=== PATIENT | female | born 1960 | race Caucasian/White ===

== ENCOUNTER → 2017-11-10 09:37 | Outpatient (CLI) | payer MEDICARE, MEDICAID, SELFPAY ==
[2017-11-10 12:04] LABS: Absolute Lymphocyte Count 2.77 X10^3/ul (0.83-4.51); Absolute Neutrophil Count 6.3 X10^3/uL (2.0-7.7); Basophil# 0.05 X10^3/uL; Basophil% 0.5 % (0-1); Eosinophil# 0.37 X10^3/uL; Eosinophils% 3.6 % (0-5); Hematocrit 37.9 % (37-47); Lymphocyte # 2.77 X10^3/ul (4.0); Lymphocyte % 27.1 % (19-41); Mean Corp Hgb Conc 31.7 g/gl (32-36); Mean Corpuscular Hgb 28.1 pg (27.0-32.0); Mean Corpuscular Volume 88.8 fL (81-99); Mean Platelet Vol. 9.3 fl (6.2-12.0); Monocyte# 0.74 X10^3/uL; Monocyte% 7.2 % (0-10); Neutrophil # 6.27 X10^3/uL (2.7-7.7); Neutrophil % 61.5 % (47-70); Platelet Count 371 K/mm3 (150-450); RBC Distribution Width CV 14.3 % (11.6-14.6); RBC Distribution Width SD 46.5 fl (35.1-43.9); Red Blood Count 4.27 M/mm3 (4.2-5.4); White Blood Count 10.2 K/mm3 (4.4-11.0)
[2017-11-10 12:06] LABS: POSITIVE COUNT NO; POSITIVE DIFFERENTIAL NO; POSITIVE MORPHOLOGY NO
[2017-11-10 12:23] LABS: Anion Gap 8 (5-15); BUN 10 mg/dL (7-18); BUN/Creat Ratio 31.7 RATIO (10-20); Calcium,Total 8.6 mg/dL (8.5-10.1); Chloride 103 mmol/L (98-107); Cholesterol 162 mg/dL (200); Creatinine, Serum 0.32 mg/dL (0.55-1.02); EST Glomerular Filtration Rate 230 mL/min (>60); Est Glom Filt Rate - Afr Amer 278 mL/min (>60); Glucose 55 mg/dL (74-106); High Density Lipoprotein 37 mg/dL; Potassium 4.4 mmol/L (3.5-5.1); Sodium Level 140 mmol/L (136-145); Triglycerides 211 mg/dL; Very Low Density Lipoprotein 42 mg/dL (5-40)
[2017-11-10 12:29] LABS: Hemoglobin A1c 6.7 % (4.2-6.3)
== END ==
PROVIDERS: Family Provider Family Medicine; PCP Family Medicine; Visit Provider Family Medicine
DX: E11.9 Type 2 diabetes mellitus without complications (principal); E78.00 Pure hypercholesterolemia, unspecified
CPT/HCPCS: 36415; 80048; 80061; 83036; 85025

== ENCOUNTER 2018-01-05 10:55 | Outpatient (RCR) | payer MEDICARE, MEDICAID, SELFPAY ==
--- NOTE | 2018-01-05 12:01 | HP.PTEVAL_ITS ---
Patient's Visit Information GIOVANNI LAWRENCE is a 57 year old F referred to Physical Therapy by Howard Alvarez with a diagnosis of CP. Date of Evaluation: 01/05/18 Physical Therapist: Liam Connor DPT, OC - Visit Plan Frequency: No further visits now. Plan: Wc rep present adn will get me paperwork to fill out to get the process rolling. Educated him and drug safety assistant that if she needs mobility training once she gets her new chair than we would love to see her again. D/C at this time and will take care of paperwork as it comes in. - Subjective Subjective: Presents with insurance verification representative and insurance verification representative from her home. I need a new chair as this one is broken down. Referred here by the [employer] company and doctor. Had major electric down time with it. Sleep in a bed and transfers via ceiling lift to where she spends her day. No pain. Sleeps well with CPAP. Works at [email or web address] at [employer]. 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 I like to go to the mall. Someone else mobilizes electric WC for her. Used to be able to move WC herself but not any more. Someone else always moves WC for her. Postiion of WC is not good for her as it is off to the right. Wheres depends briefs. ASometimes takes shower or bath with track system. No numbness in UE or LE. No dizzyness. Reliant on others to feed her. Cannot change channel on TV. - Objective 60 L c/s rot adn 30 R Holds headtilted L. wrists ulnar devaited and stiff, Unable to actively move UE or LE with the excetion of some small lateral and forward movements of R hand grossly which should be able to control WC if we can get the joystick to her hand. Both hands are contracted closed L >R and carpal -MC joints show very little ability to open actively or passivley., can bend elbows full flexion but only straighten to about 90 degrees flexion and no further passivley. No ative scapular pr shoulder motions. Unable to move trunk actively. No pelvic mobiliity acitvely but I can correct passively minimally. Hips have flexion contracture stuck at 90 degrees felxion and L is adducted to 20 but can get her to neutral frontal plane passivley with effort. Only about 10 degrees of passive rotation at hips, Knees can get no straighter than 90 degrees flexion due to her tone and bend to about 105. Ankles show good DF passivley and to neutral 90 degree DF/PF but no passive movement into PF. No active or passive inv/ev available. No active movements in LE at all. No eris lift to transfer her but report is patient cannot sit without support and my testing validates denny in the chair. Otherwise she seems to be oriented to person and place. She is pleasant and looking forward to a better feeling WC which is appropriate for this patient to hel p maintain her passive alignment and hopefull get her moving in open spaces with the joystick. Alignment will be completely passive with chest harness and head support appropriate and likely need head strap. She will need molded support for posture, ribs, pelvis and tiltable and cushion for pressure control. She will need abd wedge to maintain pelvic and hip position and straps at feet with foot support. These will need easily removed for eris transfers. Joystick will need to get to R hand in the middle of her body as she cannot ext rotate her UE which brings her R hand to midline of body (both hands). Unable to ambulate or stand or transfer herself, completely reliant on others for her mobility and positioning in her current chair. \L hip adducted in but can get to bneutral passivley, sits on outside of L hip because of this causing L pelvic tilt and corrective R bend of lumbar/thoracic spine. Head is held in 20 degree L SB and prefers L rotation can hold head in neutral unsupported for short periods of time but relies on head support. Sensation to gross light touch OK to gross testing in LE. - Goals Goal 1:: Get appropriate information to get patient appropriate WC. Goal Time Frame: 1 Week - Rehabilitation Potential Physical Therapy Diagnosis: CP Rehabilitation Potential: Fair - Anticipated Interventions Patient/Client Instruction: Educate patient on: Condition, Plan of Care Thank you for the opportunity to evaluate your patient. For Medicare and Medicare HMO plans, please review the plan of care and approve it. It will need to be FAXED BACK to us at [phone] for Medicare purposes. Please let me know if there are questions or concerns regarding this plan of care. Physician Signature: Date:
== END 2018-01-05 12:50 | disposition home or self-care (01) ==
LOC: PT 10:55
PROVIDERS: Family Provider Family Medicine; PCP Family Medicine; Visit Provider Family Medicine
DX: G80.0 Spastic quadriplegic cerebral palsy (principal)
CPT/HCPCS: 97163

== ENCOUNTER → 2018-06-09 09:17 | Outpatient (CLI) | payer MEDICARE, MEDICAID, SELFPAY ==
[2018-06-09 11:18] LABS: Anion Gap 11 (5-15); BUN 9 mg/dL (7-18); Calcium,Total 8.3 mg/dL (8.5-10.1); Chloride 102 mmol/L (98-107); Creatinine, Serum 0.39 mg/dL (0.55-1.02); EST Glomerular Filtration Rate 179 mL/min (>60); Est Glom Filt Rate - Afr Amer 216 mL/min (>60); Glucose 209 mg/dL (74-106); Potassium 3.9 mmol/L (3.5-5.1); Sodium Level 136 mmol/L (136-145)
[2018-06-09 12:02] LABS: Hemoglobin A1c 6.3 % (4.2-6.3)
--- OUTSIDE RECORDS SUMMARY | 2018-08-13 16:20 | XMS RPT_ITS ---
:1960 Author Organization OHIP Care Team Providers Name Role Phone BEBETO COBB ELIZABETH F. Attending Unavailable PHYSICIAN, NONE Primary Care Unavailable Howard Alvarez Attending Unavailable Howard Alvarez Referring Unavailable Howard Alvarez Primary Care Unavailable Howard Alvarez Attending Unavailable Howard Alvarez Primary Care Unavailable Howard Alvarez Attending Unavailable Howard Alvarez Referring Unavailable Howard Alvarez Primary Care Unavailable PROBLEMS PROBLEMS No Problem Records FoundPROCEDURES PROCEDURES No Procedure Records FoundRESULTS RESULTS BASIC METABOLIC Collected: 06/09/2018 Status: F Source: GIANCARLO PROFILE (BMP) 9:22 AM [facility] REPOSITORY TYPE CODE TESTS RESULT OUT OF RANGE REFERENCE UNITS LAB L501.0100 74-106 mg/dL High GLU 209 Result Comment: Glucose result greater than or equal to 200 mg/dL suggests DIABETES MELLITUS per A.D.A. criteria. Please note revised GLUCOSE reference range effective 2017. LAB L501.1000 7-18 mg/dL Normal BUN 9 LAB L501.1100 0.55-1.02 mg/dL Low CREAT,SERUM 0.39 Result Comment: The validity of the calculated GFR AND GFRAA in patients over 70 years has not been determined. Clinical correlation is essential. LAB L501.1110 >60 mL/min Normal EST GFR 179 Result Comment: Non- GFR Calc LAB L501.1115 >60 mL/min Normal EST GFR - AA 216 Result Comment: GFR Calc LAB L501.1300 10-20 RATIO High BUN/CRE 23.0 LAB L501.2200 8.5-10.1 mg/dL Low CA 8.3 LAB L501.5300 136-145 mmol/L NA Normal 136 LAB L501.5600 3.5-5.1 mmol/L K Normal 3.9 LAB L501.5900 98-107 mmol/L CL Normal 102 LAB L501.6100 21.0-32.0 mmol/L Normal CO2 23.0 LAB L501.6200 5-15 Normal GAP 11 Performed By: #### L500.2500, L501.9985 #### [facility] [address] [place], [address] HEMOGLOBIN A1C Collected: 06/09/2018 Status: F Source: GIANCARLO 9:22 AM [facility] REPOSITORY TYPE CODE TESTS RESULT OUT OF RANGE REFERENCE UNITS LAB L501.9985 4.2-6.3 % Normal HGB A1C 6.3 Performed By: #### L500.2500, L501.9985 #### [facility] [address] [place], [address] INITAL EVALUATION (1) Observed: 01/06/2018 Status: F Source: GIANCARLO - PT 6:43 AM [facility] REPOSITORY [facility] [address] [place], [place] [address] Fax REHABILITATION SERVICES INITIAL EVALUATION MR#: [id number] Acct: [id number] Name: FLORIDALMA LAWRENCE Rep #: [id number] : 1960 57 From: Liam Connor DPT, OCS, CSCS Referring Dr.: Howard Alvarez MD Status: DIS RCR Insurance: MEDICARE PART A B MEDICAID Patient's Visit Information FLORIDALMA LAWRENCE is a 57 year old F referred to Physical Therapy by Howard Alvarez with a diagnosis of CP. Date of Evaluation: 01/05/18 Physical Therapist: Liam Connor DPT, OC - Visit Plan Frequency: No further visits now. Plan: Wc rep present adn will get me paperwork to fill out to get the process rolling. Educated him and flavoring oil filterer that if she needs mobility training once she gets her new chair than we would love to see her again. D/C at this time and will take care of paperwork as it comes in. - Subjective Subjective: Presents with sales representative business courses and sales representative business courses from her home. I need a new chair as this one is broken down. Referred here by the [employer] company and doctor. Had major electric down time with it. Sleep in a bed and transfers via ceiling lift to where she spends her day. No pain. Sleeps well with CPAP. Works at [employer] at [employer]. 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 I like to go to the mall. Someone else mobilizes electric WC for her. Used to be able to move WC herself but not any more. Someone else always moves WC for her. Postiion of WC is not good for her as it is off to the right. Wheres depends briefs. ASometimes takes shower or bath with track system. No numbness in UE or LE. No dizzyness. Reliant on others to feed her. Cannot change channel on TV. - Objective 60 L c/s rot adn 30 R Holds headtilted L. wrists ulnar devaited and stiff, Unable to actively move UE or LE with the excetion of some small lateral and forward movements of R hand grossly which should be able to control WC if we can get the joystick to her hand. Both hands are contracted closed L >R and carpal -MC joints show very little ability to open actively or passivley., can bend elbows full flexion but only straighten to about 90 degrees flexion and no further passivley. No ative scapular pr shoulder motions. Unable to move trunk actively. No pelvic mobiliity acitvely but I can correct passively minimally. Hips have flexion contracture stuck at 90 degrees felxion and L is adducted to 20 but can get her to neutral frontal plane passivley with effort. Only about 10 degrees of passive rotation at hips, Knees can get no straighter than 90 degrees flexion due to her tone and bend to about 105. Ankles show good DF passivley and to neutral 90 degree DF/PF but no passive movement into PF. No active or passive inv/ev available. No active movements in LE at all. No eris lift to transfer her but report is patient cannot sit without support and my testing validates denny in the chair. Otherwise she seems to be oriented to person and place. She is pleasant and looking forward to a better feeling WC which is appropriate for this patient to hel p maintain her passive alignment and hopefull get her moving in open spaces with the joystick. Alignment will be completely passive with chest harness and head support appropriate and likely need head strap. She will need molded support for posture, ribs, pelvis and tiltable and cushion for pressure control. She will need abd wedge to maintain pelvic and hip position and straps at feet with foot support. These will need easily removed for eris transfers. Joystick will need to get to R hand in the middle of her body as she cannot ext rotate her UE which brings her R hand to midline of body (both hands). Unable to ambulate or stand or transfer herself, completely reliant on others for her mobility and positioning in her current chair. \L hip adducted in but can get to bneutral passivley, sits on outside of L hip because of this causing L pelvic tilt and corrective R bend of lumbar/thoracic spine. Head is held in 20 degree L SB and prefers L rotation can hold head in neutral unsupported for short periods of time but relies on head support. Sensation to gross light touch OK to gross testing in LE. - Goals Goal 1:: Get appropriate information to get patient appropriate WC. Goal Time Frame: 1 Week - Rehabilitation Potential Physical Therapy Diagnosis: CP Rehabilitation Potential: Fair - Anticipated Interventions Patient/Client Instruction: Educate patient on: Condition, Plan of Care Thank you for the opportunity to evaluate your patient. For Medicare and Medicare HMO plans, please review the plan of care and approve it. It will need to be FAXED BACK to us at [phone] for Medicare purposes. Please let me know if there are questions or concerns regarding this plan of care. Physician Signature: Date: <Electronically signed by Liam Connor DPT, OCS, CSCS> 01/06/18 0643 CC: Howard Alvarez MD EBG Signed For Medicare only, by signing this I certify the plan of care. Physicians Signature Date CBC W/DIFF, AUTOMATED Collected: 11/10/2017 Status: F Source: GIANCARLO 9:42 AM [facility] REPOSITORY Order Comment: Order Date: 07/28/17 Order Info: [id number] - CBCD TYPE CODE TESTS RESULT OUT OF RANGE REFERENCE UNITS LAB L100.1000 4.4-11.0 K/mm3 Normal WBC 10.2 LAB L100.1200 4.2-5.4 M/mm3 Normal RBC 4.27 LAB L100.1300 12.0-15.0 g/dl Normal HGB 12.0 LAB L100.1400 37-47 % Normal HCT 37.9 LAB L100.1500 81-99 fL Normal MCV 88.8 LAB L100.1600 27.0-32.0 pg Normal MCH 28.1 LAB L100.1700 32-36 g/gl Low MCHC 31.7 LAB L100.1810 11.6-14.6 % Normal RDW CV 14.3 LAB L100.1820 35.1-43.9 fl High RDW SD 46.5 LAB L100.1900 150-450 K/mm3 Normal PLT 371 LAB L100.2000 6.2-12.0 fl Normal MPV 9.3 LAB L100.2100 47-70 % Normal NEUT% 61.5 LAB L100.2200 19-41 % Normal LY% 27.1 LAB L100.2300 0-10 % Normal MONO% 7.2 LAB L100.2400 0-5 % Normal EO% 3.6 LAB L100.2500 0-1 % Normal BASO% 0.5 LAB L100.2550 0.0-0.9 % Normal IM GRAN % 0.100 Result Comment: IG% - Immature Granulocytes (promyelocytes, myelocytes and metamyelocytes) > 1% indicates that a LEFT SHIFT is Present. LAB L100.2620 2.0-7.7 X10 3/uL Normal Absolute Neut 6.3 LAB L100.2720 0.83-4.51 X10 3/ul Normal Absolute Lymph 2.77 Performed By: #### L100.0100, L500.2500, L500.4100, L501.9985 #### [facility] [address] [place], [address] BASIC METABOLIC Collected: 11/10/2017 Status: F Source: GIANCARLO PROFILE (BMP) 9:42 AM [facility] REPOSITORY Order Comment: Order Date: 07/28/17 Order Info: [id number] - BMP Order Info: [id number] - LIPID TYPE CODE TESTS RESULT OUT OF RANGE REFERENCE UNITS LAB L501.0100 74-106 mg/dL Low GLU 55 Result Comment: Please note revised GLUCOSE reference range effective 2017. LAB L501.1000 7-18 mg/dL Normal BUN 10 LAB L501.1100 0.55-1.02 mg/dL Low CREAT,SERUM 0.32 Result Comment: The validity of the calculated GFR AND GFRAA in patients over 70 years has not been determined. Clinical correlation is essential. LAB L501.1110 >60 mL/min Normal EST GFR 230 Result Comment: Non- GFR Calc LAB L501.1115 >60 mL/min Normal EST GFR - AA 278 Result Comment: GFR Calc LAB L501.1300 10-20 RATIO High BUN/CRE 31.7 LAB L501.2200 8.5-10.1 mg/dL CA Normal 8.6 LAB L501.5300 136-145 mmol/L NA Normal 140 LAB L501.5600 3.5-5.1 mmol/L K Normal 4.4 LAB L501.5900 98-107 mmol/L CL Normal 103 LAB L501.6100 21.0-32.0 mmol/L Normal CO2 29.0 LAB L501.6200 5-15 Normal GAP 8 Performed By: #### L100.0100, L500.2500, L500.4100, L501.9985 #### [facility] [address] [place], [address] LIPID PROFILE Collected: 11/10/2017 Status: F Source: POMERENE 9:42 AM [facility] REPOSITORY Order Comment: Order Date: 07/28/17 Order Info: [id number] - BMP Order Info: [id number] - LIPID TYPE CODE TESTS RESULT OUT OF RANGE REFERENCE UNITS LAB L501.4900 200 mg/dL Normal CHOL 162 Result Comment: <200 mg/dL Desirable 200-240 mg/dL Borderline >240 mg/dL High Risk LAB L501.5000 mg/dL High TRIG 211 Result Comment: The drugs N-Acetylcysteine and Metamizole may falsely depress this assay. Serum Triglycerides Reference Interval Normal <150 mg/dL Borderline high 150 - 199 mg/dL High 200 - 499 mg/dL Very High > or = 500 mg/dL LAB L501.6400 mg/dL Low HDL 37 Result Comment: The drugs N-Acetylcysteine and Metamizole may falsely depress this assay. Reference Range HDL <40 mg/dL Low HDL Cholesterol HDL >or= 60 mg/dL High HDL Cholesterol LAB L501.6500 0-130 mg/dL Normal LDL 83 LAB L501.6600 5-40 mg/dL High VLDL 42 Performed By: #### L100.0100, L500.2500, L500.4100, L501.9985 #### [facility] [address] [place], [address] HEMOGLOBIN A1C Collected: 11/10/2017 Status: F Source: POMERENE 9:42 AM [facility] REPOSITORY Order Comment: Order Date: 07/28/17 Order Info: [id number] - A1C TYPE CODE TESTS RESULT OUT OF RANGE REFERENCE UNITS LAB L501.9985 4.2-6.3 % High HGB A1C 6.7 Performed By: #### L100.0100, L500.2500, L500.4100, L501.9985 #### [facility] [address] [place], [address] XR CHEST 1 VIEW Observed: 08/04/2017 Status: F Source: MARY[place] Shopping 8:38 PM [facility] REPOSITORY ORIGINAL XR CHEST 1 VIEW PORTABLE AP CLINICAL STATEMENT: SOB/cough/fever. COMPARISON: Chest radiograph 10/30/2015 FINDINGS: The patient is rotated. The cardiomediastinal contours are stable. There is elevation of the left hemidiaphragm. There is bilateral hazy airspace opacities bilaterally, greater on the right. No vascular congestion, large pleural effusion or pneumothorax. No acute osseous abnormality. IMPRESSION: Hazy airspace opacities within the lungs bilaterally, greater on the right, may represent pneumonia. Continued follow-up is recommended. Interpreted By: Anum Xie MD Preliminary Report By: Anum Xie MD Electronically Signed By: Anum Xie MD Dictated Date: 08/04/2017 9:10:25 PM Prelim Date: 08/04/2017 9:10:25 PM Sign Date: 08/04/2017 9:13:08 PM CBC Collected: 08/04/2017 Status: F Source: [place] 8:03 PM [facility] REPOSITORY TYPE CODE TESTS RESULT OUT OF REFERENCE UNITS RANGE LAB WBC(LOINC) 4.60-10.80 10 3/mcL High WBC 13.80 LAB RBCCT(LOINC 4.20-5.40 10 6/mcL ) RBC 4.36 LAB HGB(LOINC) 12.0-16.0 G/dL Low Hgb 11.9 LAB HCT(LOINC) 37.0-47.0 % Hct 37.4 LAB MCV(LOINC) 80.0-94.0 fL MCV 85.9 LAB MCH(LOINC) 27.0-31.2 pg MCH 27.3 LAB MCHC(LOINC) 33.0-37.0 G/dL Low MCHC 31.8 LAB RDW(LOINC) 11.5-14.5 % RDW 14.3 LAB PLT(LOINC) 130-400 10 3/mcL Platelet 348 LAB MPV(LOINC) 7.4-10.4 fL Low MPV 7.2 Performed By: #### CBC, ADIFF, ANEU, GFR, BMP #### [place] [id number] .AUTO DIFF Collected: 08/04/2017 Status: F Source: [facility] 8:03 [facility] REPOSITORY TYPE CODE TESTS RESULT OUT OF REFERENCE UNITS RANGE LAB PRATIK(LOINC) 37.0-80.0 % Neutrophil % 68.7 LAB LYM(LOINC) 10.0-50.0 % Lymphocyte % 20.9 LAB MON(LOINC) 1.7-13.0 % Monocyte % 5.9 LAB EO(LOINC) 0.0-7.0 % Eosinophil % 3.9 LAB BAS(LOINC) 0.0-2.5 % Basophil % 0.6 LAB ABLYM(LOIN 0.77-3.85 10 3/mcL C) Lymphocyte, 2.90 Absolute LAB DAVE(LOINC 0.15-1.00 10 3/mcL ) Monocyte, 0.80 Absolute LAB AEOS(LOINC 0.00-0.40 10 3/mcL ) High Eosinophil, 0.50 Absolute LAB ABAS(LOINC 0.00-0.19 10 3/mcL ) Basophil, 0.10 Absolute Performed By: #### CBC, ADIFF, ANEU, GFR, BMP #### [address] [address] .NEUABS Collected: 08/04/2017 Status: F Source: [facility] 8:03 [facility] REPOSITORY TYPE CODE TESTS RESULT OUT OF REFERENCE UNITS RANGE LAB ANEU(LOINC) 2.85-6.16 10 3/mcL High Neutrophil, 9.50 Absolute Performed By: #### CBC, ADIFF, ANEU, GFR, BMP #### [address] [address] .GFR Collected: 08/04/2017 Status: F Source: [facility] 8:03 [facility] REPOSITORY TYPE CODE TESTS RESULT OUT OF REFERENCE UNITS RANGE LAB GFRAA(LOINC ml/min/1.73 ) sqm GFR 110 Bel[place]ian Result Comment: GFR Population mean for , Non- Americans Ages 20-29 = 116 mL/min/1.73 sq.m. Ages 30-39 = 107 mL/min/1.73 sq.m. Ages 40-49 = 99 mL/min/1.73 sq.m. Ages 50-59 = 93 mL/min/1.73 sq.m. Ages 60-69 = 85 mL/min/1.73 sq.m. Ages 70+ = 75 mL/min/1.73 sq.m. Chronic Kidney Disease: Less than 60 mL/min/1.73 square meters End Stage Renal Disease: Less than 15 mL/min/1.73 square meters LAB GFRNO(LOINC) ml/min/1.73sqm GFR Non- >60 Result Comment: GFR Population mean for , Non- Americans Ages 20-29 = 116 mL/min/1.73 sq.m. Ages 30-39 = 107 mL/min/1.73 sq.m. Ages 40-49 = 99 mL/min/1.73 sq.m. Ages 50-59 = 93 mL/min/1.73 sq.m. Ages 60-69 = 85 mL/min/1.73 sq.m. Ages 70+ = 75 mL/min/1.73 sq.m. Chronic Kidney Disease: Less than 60 mL/min/1.73 square meters End Stage Renal Disease: Less than 15 mL/min/1.73 square meters Performed By: #### LYNDA MELARA, ANEU, GFR, BMP #### Mary [address] [address] BMP Collected: 08/04/2017 Status: F Source: [place] 8:03 PM [facility] REPOSIT[facility] TYPE CODE TESTS RESULT OUT OF REFERENCE UNITS RANGE LAB 1547-9 70-105 mg/dL GLUCOSE High 156 LAB NA(LOINC) 136-146 mEq/L Sodium Level 141 LAB K(LOINC) 3.5-5.1 mEq/L Potassium Level 4.3 LAB CL(LOINC) 98-107 mEq/L Chloride 103 LAB CO2(LOINC) 22-29 mEq/L CO2 26 LAB EBAL(LOINC mEq/L ) Electrolyte Balance 12.0 LAB BUN(LOINC) 7.0-18.0 mg/dL BUN 8.3 LAB CRE(LOINC) 0.6-1.2 mg/dL Creatinine Lvl (s) 0.7 LAB BC(LOINC) 7-27 ratio BUN/Creatinine 12 Ratio LAB CA(LOINC) 8.4-10.2 mg/dL Calcium Lvl 8.9 Performed By: #### CBC, ADIFF, ANEU, GFR, BMP #### [place] [address] [place], [place] [address] ALLERGIES ALLERGIES DATE TYPE / CODE NAME / CODE REACTION SEVERITY SOURCE 08/02/2013 Drug Penicillins/ Other Unknown [facility] Allergy/4160 [id number](R Hospital [address](SNOMED XNORM) Repository CT) ENCOUNTERS ENCOUNTERS ADMIT/DISCHARGE ACCOUNT NUMBER ADMITTING ENCOUNTER LOCATION SOURCE CLASS 06/09/2018 [id number] [facility] ding:MTLAB Repository 01/05/2018/01/06/[id number] ding:PT Repository 11/10/2017 [id number] [facility] ding:MFPLAB Repository 08/04/2017/08/05/19 [id number] Emergency BBuilding:ROLLY [address] Repository PAYERS PAYERS ENCOUNTER GUARANTOR PAYER SUBSCRIBER SOURCE 06/09/2018 FLORIDALMA S JACOTC/O Primary FLORIDALMA S [place] BECKLER,BETHBOX Insurance:MEDICARE JACOTDOB: [address], PART A [facility] [id number] [address]Tzp: Number: Repository [id number] (HP) Date:2018-06-09 06/09/2018 Secondary FLORIDALMA S [place] Insurance:MEDICAIDPol [facility] ic Number: [id number] Hospital [id number] Repository Date:2018-06-09 06/09/2018 Tertiary NOT GIVENUNK [place] Insurance:SELF PAY [facility] Number: Effective Repository Date:2018-06-09 01/05/2018 Floridalma S JacotC/O Primary Floridalma S Giancarlo Beckler,BethBox Insurance:MEDICARE JacotDOB: [address], PART A [facility] [id number] Hospital [place] [address]Aia: Number: Repository [id number] (HP) Date:1980-10-22 01/05/2018 Secondary Floridalma S Giancarlo Insurance:MEDICAIDPol [facility] icy Number: [id number] Hospital [id number] Repository Date:2017-12-21 01/05/2018 Tertiary NOT GIVENUNK [place] Insurance:SELF PAY [facility] Effective Repository Date:2017-12-29 11/10/2017 Floridalma S JacotC/O Primary Floridalma S [place] NapoleonMervatHakan Insurance:MEDICARE JacotDOB: [address], PART A BPolicy [id number] Healthcare Facility [address]Cyr: Number: Repository [id number] (HP) Date:2017-11-10 11/10/2017 Secondary Floridalma S [place] Insurance:MEDICAIDPol JacotDOB: Community icy Number: [id number] Hospital [id number] Repository Date:2017-11-10 11/10/2017 Tertiary NOT GIVENUNK [place] Insurance:SELF PAY [facility] Number: Effective Repository Date:2017-11-10 08/04/2017 FLORIDALMA S Primary FLORIDALMA S [facility] JACOTDOB: Insurance:MEDICARE JACOTDOB: [facility] PART BPolicy Number: [id number] Repository [place] [id number] [place], [place] Date:2016-12-04 - [place], [place] [address]Asq: [id number]: (HP) Name:[facility] (HP)Tel: (000) [address] [phone], [phone] ([place]) [place] [address]FE: 08/04/[address] [facility] Insurance:MEDICAID OF JACOTDOB: [facility] Number: [id number] Repository [id number] [place] Date:2017-08-04 - [place], [place] [id number]: (330) Name:BRYANNA JOLLEY [phone] [id number], [place] (HP)Tel: (000) [phone]: ([place]) [phone]
== END ==
PROVIDERS: Family Provider Family Medicine; PCP Family Medicine; Referring Provider Family Medicine; Visit Provider Family Medicine
DX: E11.9 Type 2 diabetes mellitus without complications (principal)
CPT/HCPCS: 36415; 80048; 83036

== ENCOUNTER → 2018-10-10 16:54 | Outpatient (CLI) | payer MEDICARE, MEDICAID, SELFPAY ==
--- NOTE | 2018-10-10 17:01 | RAD_ITS ---
STUDY: X-RAY - ABDOMEN/PELVIS REASON FOR EXAM: Female, 57 years old. Pain TECHNIQUE: Frontal views of the abdomen obtained COMPARISON: Abdominal x-ray August 01, 2013 FINDINGS: The lower abdomen is excluded from the [id number]. There is mild gaseous distention of the visualized small bowel and transverse colon. The remaining colon is not seen. The visualized osseous structures are within normal limits. RAD/Abdomen Single View IMPRESSION: Extremely limited evaluation, with mild gaseous distention of the visualized colon and small bowel. Electronically Signed: Indra Sitles, at 17:31 EDT Tel , Service support ,
== END ==
PROVIDERS: Family Provider Family Medicine; PCP Family Medicine; Referring Provider Nurse Practitioner Adult Health; Visit Provider Nurse Practitioner Adult Health
DX: R10.9 Unspecified abdominal pain (principal)
CPT/HCPCS: 74018

== ENCOUNTER → 2019-02-09 11:08 | Outpatient (CLI) | payer MEDICARE, MEDICAID, SELFPAY ==
--- NOTE | 2019-02-09 11:19 | RAD_ITS ---
STUDY: X-RAY CHEST REASON FOR EXAM: Female, 58 years old. Cough. TECHNIQUE: Frontal view of the chest COMPARISON: None. FINDINGS: Evaluation is essentially nondiagnostic due to projection. RAD/Chest PA and Lateral IMPRESSION: Essentially nondiagnostic evaluation due to projection. Repeat evaluation is suggested. Electronically Signed: Indra Stiles, at 22:58 EDT Tel , Service support ,
== END ==
PROVIDERS: Family Provider Family Medicine; PCP Family Medicine; Referring Provider Family Medicine; Visit Provider Family Medicine
DX: R05 Cough (principal)
CPT/HCPCS: 71046

== ENCOUNTER → 2019-08-09 12:56 | Outpatient (CLI) | payer MEDICARE, MEDICAID, SELFPAY ==
--- NOTE | 2019-08-09 14:26 | SP.MBSS_ITS ---
Primary/Secondary Diagnosis: dysphagia, unspecified (R13.10) Referring Physician: Dr. Cleveland Medical History: asthma, cerebral palsy, diabetes insipidus, neurogenic bladder, and obstructive sleep apnea Reason for Referral: Determine presence and/or degree of aspiration Current Diet: Mechanical soft textures/thin liquids Dentition: Several missing teeth Mental Status: WF for exam; able to follow directions Respiratory Status: oxygenating on room air Previous Modified Barium Swallow: Patients nurseTamar present and reports MBS study completed in 2007 placing patient on nectar thick liquids. No record available. Study Findings: This patient was seen for a Modified Barium Swallow. This study was recorded in the lateral view and images were sent to PACs for storage. The following consistencies were attempted for analysis of oropharyngeal swallow function: thin liquid and nectar thick liquid. With the assistance of [employer], radiology team, and patients nurse Tamar, pt was moved from personal chair to MBS chair where proper positioning could not be achieved for completion of mbs study. Due to patient position from contracture, patient shoulders in the view of oropharyngeal structures. Anterior-posterior position also attempted without success. Attempts with thin and nectar thick liquids made with patient coughing following each trial. Patient requested no further trial of PO intake and appeared uncomfortable. Patient was suctioned using the Yankauer suction to removed oral secretions as patient vocal quality wet. Encouraged patient and caregiver to speak with PCP regarding other methods of swallow evaluation such as FEES or use of C-arm. Patient and caregiver verbalized understanding. Sheron Scott MA, [facility] [address] [place], [place] [address] [email or web address]
== END ==
PROVIDERS: PCP Family Medicine; Referring Provider Family Medicine; Visit Provider Family Medicine
DX: R13.10 Dysphagia, unspecified (principal)
CPT/HCPCS: 74230

== ENCOUNTER → 2019-10-09 20:00 | Outpatient (CLI) | payer MEDICARE, MEDICAID, SELFPAY ==
[2019-09-12 08:19] VITALS: BMI 33.5
== END ==
PROVIDERS: PCP Family Medicine; Visit Provider Internal Medicine Critical Care Medicine
DX: G47.33 Obstructive sleep apnea (adult) (pediatric) (principal); G70.9 Myoneural disorder, unspecified; G80.0 Spastic quadriplegic cerebral palsy; J45.40 Moderate persistent asthma, uncomplicated; M40.10 Other secondary kyphosis, site unspecified; T17.908S Unspecified foreign body in respiratory tract, part unspecified causing other injury, sequela
CPT/HCPCS: 95811

== ENCOUNTER → 2019-11-06 13:18 | Outpatient (CLI) | payer MEDICARE, MEDICAID, SELFPAY ==
[2019-10-25 08:14] VITALS: BMI 33.5
== END ==
PROVIDERS: PCP Family Medicine; Referring Provider Family Medicine; Visit Provider Family Medicine
DX: Z12.31 Encounter for screening mammogram for malignant neoplasm of breast (principal)

== ENCOUNTER → 2019-11-15 08:08 | Outpatient (CLI) | payer MEDICARE, MEDICAID, SELFPAY ==
[2019-10-25 08:14] VITALS: BMI 33.5
[2019-11-15 10:39] LABS: AST(SGOT) 22 U/L (15-37); Alanine Aminotransfer ALT/SGPT 29 U/L (13-56); Alkaline Phosphatase 81 U/L (45-117); Anion Gap 7 (5-15); BUN 9 mg/dL (7-18); BUN/Creat Ratio 22.4 RATIO (10-20); Calcium,Total 8.8 mg/dL (8.5-10.1); Chloride 107 mmol/L (98-107); Cholesterol 179 mg/dL (200); EST Glomerular Filtration Rate 172 mL/min (>60); Est Glom Filt Rate - Afr Amer 208 mL/min (>60); Globulin 3.1 g/dL (2.2-4.2); Glucose 128 mg/dL (74-106); High Density Lipoprotein 47 mg/dL; Potassium 4.4 mmol/L (3.5-5.1); Protein, Total 6.1 g/dL (6.4-8.2); Sodium Level 143 mmol/L (136-145); Triglycerides 183 mg/dL; Very Low Density Lipoprotein 37 mg/dL (5-40)
[2019-11-15 10:41] LABS: Hemoglobin A1c 7.1 % (3.8-5.6)
== END ==
PROVIDERS: PCP Family Medicine; Referring Provider Family Medicine; Visit Provider Family Medicine
DX: E11.9 Type 2 diabetes mellitus without complications (principal)
CPT/HCPCS: 36415; 80053; 80061; 83036

== ENCOUNTER → 2020-01-22 07:45 | Outpatient (CLI) | payer MEDICARE, MEDICAID, SELFPAY ==
[2019-09-12 08:19] VITALS: BMI 33.5
[2019-10-25 08:14] VITALS: BMI 33.5
--- NOTE | 2020-01-22 07:49 | CT_ITS ---
STUDY: CT CHEST WITHOUT CONTRAST REASON FOR EXAM: Female, 59 years old. CONCERN FOR FIBROSIS FROM CHRONIC ASPIRATION RADIATION DOSAGE (If Supplied By Facility): CTDIvol = ( 19.67 ) mGy, DLP = ( 604.49 ) mGycm TECHNIQUE: Transaxial imaging was performed without the administration of intravenous contrast material. Multiplanar coronal and sagittal images were reformatted. Individualized dose optimization techniques were used for this CT. COMPARISON: None. FINDINGS: Minimal increased markings at the lung bases slightly more prominent on the right side suggests a mild degree of scarring. There is no demonstrated pleural abnormality. Normal heart and pericardium. Normal mediastinum. Normal hilar regions. Normal unenhanced pulmonary arteries. Normal aorta arch and descending thoracic aorta. Marked degree of levoscoliosis with multilevel disc space narrowing. Rib deformity. Findings suggestive by 1.2 cm adenoma in the left adrenal gland. CT/Chest without Contrast IMPRESSION: Mild degree of increased markings at the lung bases slightly more prominent at the right base. Electronically Signed: Dennis Rodriguez, at 9:05 EDT , Service support ,
== END ==
PROVIDERS: PCP Family Medicine; Referring Provider Internal Medicine Critical Care Medicine; Visit Provider Internal Medicine Critical Care Medicine
DX: G80.9 Cerebral palsy, unspecified (principal); T17.908S Unspecified foreign body in respiratory tract, part unspecified causing other injury, sequela; J45.40 Moderate persistent asthma, uncomplicated; G47.33 Obstructive sleep apnea (adult) (pediatric); M40.10 Other secondary kyphosis, site unspecified; G70.9 Myoneural disorder, unspecified
CPT/HCPCS: 71250

== ENCOUNTER 2020-04-21 16:11 | Emergency (ER) | payer MEDICARE, MEDICAID, SELFPAY ==
[2019-10-25 08:14] VITALS: BMI 33.5
[2020-04-21 16:12] VITALS: BP 140/49; PULSE 96; RESP 24; TEMP 36.4; O2SAT 93; BMI 29.2
--- NOTE | 2020-04-21 17:00 | ED.RN ---
HOME HEALTH AIDE AT BEDSIDE WITH PT.
--- NOTE | 2020-04-21 17:18 | ED.VISSUMM ---
- ER Visit Summary Date of Service: 04/21/20 Chief Complaint: Bumps on vaginal area History of Present Illness: The patient is a [address] Verma. 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 She has a history of severe CP. Staff from [facility] workshop states that yesterday they noticed that there were bumps on her vaginal area and her rectum. Patient denies any pain or drainage from these areas. Review of systems: General: No fever, chills, cold sweats. Cardiovascular: No chest pain, palpitations. Respiratory: No cough, shortness of breath, dyspnea on exertion. Gastrointestinal: No abdominal pain, nausea, vomiting, diarrhea, melena, or hematochezia. Genitourinary: No dysuria, frequency, hematuria. Skin: No rash. Neuro: No headache, numbness, weakness. Physical Examination: Vitals: Stable. Afebrile. General: Well-nourished and well-developed. Head: Normocephalic atraumatic. Neck: Supple, no lymphadenopathy. No JVD. Nontender. Cardiovascular: Regular rate and rhythm. No murmurs. Respiratory: No respiratory distress. Clear to auscultation bilaterally. Abdominal: Soft, nontender, nondistended, normal bowel sounds. No guarding, rebound, or peritoneal signs. : Multiple 2 to 5 mm flesh-colored papules to her labia majora bilaterally. These are nontender to palpation. There is no erythema, induration or fluctuance. Back: Nontender. Extremities: Nontender, no edema. Contractures. Skin: Normal color, no rash. Neurologic: Alert and oriented ?3. Psych: Normal affect. Emergency Department Course and Treatment: Patient is resting comfortably without complaint. Treatment Plan: Patient was discussed with Dr. Lizett Alvarez who will see her in the office in 1 to 2 weeks for another exam. Return to the emergency department for any worsening symptoms. Disposition: To home in improved and stable condition. Impression: 1. Papules to labia majora. This note was generated with [employer] dictation software. It may contain incorrect words, spelling, and punctuation that were not noted in review of the chart prior to signing ED Disposition - Plan for ED Patient: Disposition: Home or Assisted Living Instructions: Self-Care for Skin Rashes Referrals: Lizett Alvarez, [STAFF PHYSICIAN] - 1-2 Weeks
[2020-04-21 17:45] VITALS: BP 132/67; PULSE 72; RESP 16; O2SAT 97
== END 2020-04-21 17:53 | disposition home or self-care (01) ==
LOC: ED 17:36
PROVIDERS: Emergency Provider Emergency Medicine; PCP Family Medicine
DX: R23.8 Other skin changes (principal)
CPT/HCPCS: 99282